=== PATIENT | male | born 2000 | race Caucasian/White ===

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

== ENCOUNTER 2018-12-09 18:26 | Emergency (ER) | payer MEDICAID ==
[~2018-12-09] VITALS: Ht 180.3 cm; Wt 78.6 kg
[2018-12-09 18:35] VITALS: BP 148/73
--- NOTE | 2018-12-09 18:41 | NUR ---
PT AMBULATED TO LOBBY AT THIS TIME, VSS, AIRWAY PATENT, RR EVEN, NON-LABORED, WITH BREATH SOUNDS CLEAR.
--- NOTE | 2018-12-09 18:48 | NUR ---
PT TO ER BED 8
--- NOTE | 2018-12-09 19:10 | NUR ---
PATIENT PRESENTS TO ED WITH C/O SORE THROAT X2 WEEKS. PT WAS NOTED WITH BL SWOLLEN TONSILS. MOM REPORTS PT HAD APPOINTMENT TO REMOVE TONSILS APPROX 2 YEARS AGO BUT KEPT GETTING RESCHEDULED AND NEVER GOT THE SURGERY. AIRWAY PATENT. VSS. DENIES N/V; DENIES FEVER. PATIENT STATES PAIN OF 10/10 WHEN SWALLOWING; PATIENT POSITIONED FOR COMFORT; HOB ELEVATED; BEDRAILS UP X1; BED DOWN. PENDING ER MD EVALUATION.
--- NOTE | 2018-12-09 19:50 | NUR ---
Dr. Padilla examining patient.
[2018-12-09] MEDS ORDERED: KETOROLAC 30 MG/ML VIAL IM ONE (19:55)
[2018-12-09] MEDS ORDERED: HYDROcodone/APAP 5/325 MG 1 TAB TAB PO ONE (19:55)
[2018-12-09] MEDS ORDERED: DEXAMETHASONE 10 MG/ML VIAL PO ONE (19:55)
--- NOTE | 2018-12-09 20:20 | NUR ---
REPORT GIVEN TO PARAS PASCUAL. TRANSFER OF CARE AT THIS TIME.
--- NOTE | 2018-12-09 20:34 | NUR ---
Patient discharged with v/s stable. Written and verbal after care instructions given and explained. Patient alert, oriented and verbalized understanding of instructions. Ambulatory with steady gait. All questions addressed prior to discharge. ID band removed. Patient advised to follow up with PMD. Rx of NAPROSYN, TYLENOL W/ CODEINE, AUGMENTIN given. Patient educated on indication of medication including possible reaction and side effects. Opportunity to ask questions provided and answered.
[2018-12-09 20:36] VITALS: BP 109/53
== END 2018-12-09 20:34 | disposition home or self-care (01) ==
LOC: MED 18:26
DX: J02.9 Acute pharyngitis, unspecified (principal)
CPT/HCPCS: 87081; 96372; 99283; J1100; J1885

== ENCOUNTER 2021-04-29 02:12 | Emergency (ER) | payer MEDICAID, OTHER ==
[~2021-04-29] VITALS: Ht 177.8 cm; Wt 81.6 kg
--- NOTE | 2021-04-29 02:17 | NUR ---
PT AMBULATED TO BED 11.
[2021-04-29 02:19] VITALS: BP 116/84
[2021-04-29] MEDS ORDERED: IBUP-2213 PO (02:33)
[2021-04-29] MEDS ORDERED: PRED20TA5 PO (02:33)
--- NOTE | 2021-04-29 02:35 | NUR ---
PATIENT IS CLEARED FOR DISCHARGE AT THIS TIME. HAS NO FURTHER QUESTIONS OR CONCERNS FOLLWING DISCHARGE TEACHING. ADVISED TO FOLLOW UP WITH PCP AND RX SENT WITH PATIENT.
[2021-04-29 02:41] VITALS: BP 116/84
== END 2021-04-29 02:35 | disposition home or self-care (01) ==
LOC: MED 02:12
DX: R05.9 Cough, unspecified (principal); R06.02 Shortness of breath
CPT/HCPCS: 99281; 99282

== ENCOUNTER 2021-05-13 02:05 | Emergency (ER) | payer OTHER ==
[~2021-05-13] VITALS: Ht 180.3 cm; Wt 81.6 kg
[~2021-05-13 02:05] MED LIST: IBUP-2213 PO; PRED20TA5 PO
[2021-05-13 02:19] VITALS: BP 124/57
--- NOTE | 2021-05-13 02:28 | NUR ---
PT TAKEN TO BED 12 VIA WHEELCHAIR.
--- NOTE | 2021-05-13 02:35 | NUR ---
PATIENT WITH C/O SEVERE RIGHT FOOT PAIN AFTER FALLING LAST NIGHT AT 1999. PATIENT STATES HE WAS RUNNING AND FELL ON HIS RIGHT SIDE AND HEARD A "CRACKING" NOISE FROM THE ANKLE/FOOT. RATES PAIN 10/10 WHEN WALKING OR STANDING ON RIGHT FOOT. DID NOT TAKE ANY MEDICATION FOR PAIN RELIEF. PATIENT IN NO APPARENT ACUTE DISTRESS. PMH: NONE
--- NOTE | 2021-05-13 03:02 | NUR ---
RADIOLOGY IN ROOM, X-RAY IN PROGRESS.
--- NOTE | 2021-05-13 06:00 | NUR ---
PATIENT OBSERVED SLEEPING IN BED, NO ACUTE DISTRESS NOTED.
--- NOTE | 2021-05-13 07:00 | NUR ---
SPLINT APPLIED AND EXAMINED BY BOBBY. BOBBY APPROVED OF SPLINT APPLICATION
[2021-05-13 07:05] VITALS: BP 110/54
--- NOTE | 2021-05-13 07:05 | NUR ---
Patient discharged with v/s stable. Written and verbal after care instructions given and explained. Patient verbalized understanding. Ambulatory with steady gait. All questions addressed prior to discharge. Advised to follow up with PMD.
== END 2021-05-13 07:05 | disposition home or self-care (01) ==
LOC: MED 02:05
DX: S92.901A Unspecified fracture of right foot, initial encounter for closed fracture (principal); Z79.1 Long term (current) use of non-steroidal anti-inflammatories (NSAID); Z79.899 Other long term (current) drug therapy; W18.40XA Slipping, tripping and stumbling without falling, unspecified, initial encounter; Y92.89 Other specified places as the place of occurrence of the external cause; Y93.89 Activity, other specified; Y99.8 Other external cause status
CPT/HCPCS: 29515; 73610; 73630; 99284